=== PATIENT | female | born 1985 | race Caucasian/White ===

== ENCOUNTER 2025-01-05 16:50 | Inpatient (IN) | payer MEDICAID ==
[~2025-01-05] VITALS: Ht 160 cm; Wt 53.6 kg
[2025-01-05 17:40] VITALS: PULSE 94; RESP 16; O2SAT 100
[2025-01-05] MEDS: ROCURONIUM BROMIDE 10MG/ML VIAL 5ML IV ONE (17:50)
[2025-01-05] MEDS: PROPOFOL 10MG/ML 100ML 100 ML IV ONE (17:50)
[2025-01-05] MEDS: ETOMIDATE 2MG/ML 10ML VIAL IV ONE (17:50)
[2025-01-05] MEDS: NALOXONE HCL 0.4MG/ML 1ML VIAL ONE (17:51)
[2025-01-05 18:02] LABS: BASOPHILS % 0.4 % (0.0-2.0); EOSINOPHILS % 0.6 % (0.0-5.0); HEMATOCRIT. 40.3 % (36.0-48.0); HEMOGLOBIN. 13.1 g/dL (12.0-16.0); MEAN CORPUSCULAR HGB CONC 32.6 g/dL (31.0-37.0); MEAN CORPUSCULAR VOLUME 91.9 fL (81.0-99.0); MEAN PLATELET VOLUME 7.3 fl (7.4-10.4); MONOCYTES % 6.6 % (2.0-8.0); NEUTROPHILS % 56.4 % (40.0-76.0); PLATELET 321 x1000/uL (130-400); RED BLOOD CELL COUNT 4.38 mill/uL (4.2-5.4); RED CELL DISTRIBUTION WIDTH 13.4 % (11.6-14.6); WHITE BLOOD COUNT 6.6 x1000/uL (4.5-11.0)
[2025-01-05 18:10] LABS: CHLORIDE 105 mEq/L (98-107); SODIUM 139 mEq/L (136-145)
[2025-01-05 18:11] LABS: CARBON DIOXIDE 21 mEq/L (21-32)
[2025-01-05 18:12] LABS: CALCIUM 8.7 mg/dL (8.7-10.4)
[2025-01-05 18:16] LABS: CREATININE 0.6 mg/dL (0.6-1.0); GLUCOSE 96 mg/dL (70-105); HCG SCREEN NEGATIVE
[2025-01-05 18:17] LABS: UREA NITROGEN BLOOD 7 mg/dL (9-23)
[2025-01-05] MEDS: NALOXONE HCL 0.4MG/ML 1ML VIAL IV PRN (18:17)
[2025-01-05 18:18] LABS: ACETAMINOPHEN < 2 ug/mL (10-30)
[2025-01-05 18:30] LABS: BG CARBOXYHEMOGLOBIN 0.3 % (0.5-1.5); BG DEOXYHEMOGLOBIN 0.1 % (0.0-5.0); BG FRACTION INSPIRED OXYGEN 100; BG HCO3 ACT 18.6 mmol/L (21.0-28.0); BG METHEMOGLOBIN 0.1 % (0.5-1.5); BG OXYGEN SATURATION 99.9 % (94.0-98.0); BG OXYHEMOGLOBIN 99.5 % (94.0-98.0); BG PCO2 34.2 mmHg (32.0-45.0); BG PH 7.354 (7.350-7.450); BG PO2 403.1 mmHg (83.0-108.0); BG SAMPLE SITE LEFT RADIAL; BG TOTAL HEMOGLOBIN 13.3 g/dL (12.0-16.0); BG TOTAL RESPIRATORY RATE 19 b/min; BG VENT MODE VENT - AC
[2025-01-05 18:30] LABS: ETHANOL BLOOD 493 mg/dL (<10)
[2025-01-05] MEDS: MIDAZOLAM HCL 2 MG/2 ML VIAL IV ONE ×2 (18:47→20:09)
[2025-01-05] MEDS ORDERED: FENTANYL 2500MCG/250ML PMX 250 ML IV ONE (20:00)
[2025-01-05] MEDS ORDERED: MIDAZOLAM 100MG/100ML PMX 100 ML IV PRN (20:00)
[2025-01-05] MEDS: MIDAZOLAM 100MG/100ML PMX 100 ML IV PRN (20:50)
[2025-01-05] MEDS: FENTANYL 2500MCG/250ML PMX 250 ML IV NR (20:52)
[2025-01-05] MEDS ORDERED: DEXMEDETOMIDINE 400 MCG/100 ML 100 ML IV PRN (21:15)
[2025-01-05] MEDS: NOREPINEPHRINE 8MG/250ML PMX 250 ML IV PRN (21:32)
[2025-01-05 21:41] LABS: CLARITY URINE CLEAR (CLEAR); COLOR URINE YELLOW (YELLOW); GLUCOSE URINE NEGATIVE (NEGATIVE); KETONES URINE TRACE (NEGATIVE); LEUKOCYTE ESTERASE URINE NEGATIVE (NEGATIVE); NITRITE URINE NEGATIVE (NEGATIVE); OCCULT BLOOD URINE 2+ (NEGATIVE); PH URINE 5.5 (4.5-8.0); PROTEIN URINE NEGATIVE (NEGATIVE); SPECIFIC GRAVITY URINE 1.008 (1.005-1.030); UROBILINOGEN URINE 0.2 E.U./dL (0.2-1.0)
[2025-01-05 21:43] VITALS: PULSE 78; RESP 16; O2SAT 100
[2025-01-05] MEDS: DEXT 5%/LACTATED RINGERS 1,000 ML IV SCH (21:46)
[2025-01-05 21:55] LABS: *AMPHETAMINES SCREEN URINE NEGATIVE (NEGATIVE); *BARBITURATES SCREEN URINE NEGATIVE (NEGATIVE); *BENZODIAZEPINES SCREEN URINE PRESUMPTIVE POSITIVE (NEGATIVE); *COCAINE SCREEN URINE NEGATIVE (NEGATIVE); CANNABINOID URINE SCREEN NEGATIVE (NEGATIVE); ECSTASY MDMA SCREEN URINE NEGATIVE (NEGATIVE); METHADONE URINE SCREEN NEGATIVE (NEGATIVE); OPIATES URINE SCREEN NEGATIVE (NEGATIVE); PHENCYCLIDINE URINE SCREEN NEGATIVE (NEGATIVE)
[2025-01-05] MEDS ORDERED: FENTANYL CITRATE/PF 50MCG/ML 2ML VIAL IV PRN (22:00)
[2025-01-05] MEDS ORDERED: ONDANSETRON HCL 4MG/2ML INJ IV PRN (22:15)
[2025-01-05] MEDS ORDERED: HYDRALAZINE 20MG/ML VIAL IV PRN (22:15)
[2025-01-05] MEDS ORDERED: ACETAMINOPHEN 650MG/20.3ML UDC GT PRN (22:15)
[2025-01-05] MEDS ORDERED: DEXTROSE 50% WATER 50ML SYRINGE IV PRN (22:15)
[2025-01-05 22:30] VITALS: PULSE 57; RESP 16; O2SAT 100
[2025-01-05 22:33] LABS: BACTERIA URINE 1+; SQUAMOUS EPITHELIAL CELL URINE FEW /lpf (RARE/1+); WBC URINE 0-2 /hpf (0-2)
[2025-01-05 23:08] LABS: TRIGLYCERIDE 120 mg/dL (0-150)
[2025-01-05 23:09] LABS: CREATINE KINASE MB FRACTION < 0.5 ng/mL (0.5-3.6); LDL CHOLESTEROL 121 mg/dL (5-100)
[2025-01-05 23:10] LABS: CHOLESTEROL 191 mg/dL (<200); CREATINE KINASE 76 IU/L (34-145); HDL CHOLESTEROL 48 mg/dL (>65); LACTIC ACID 3.1 mmol/L (0.4-2.0); PHOSPHORUS 3.5 mg/dL (2.5-4.9)
[2025-01-05 23:11] LABS: TROPONIN I HIGH SENSITIVITY < 4 ng/L (3.0-34)
[2025-01-05 23:13] LABS: THYROID STIMULATING HORMONE 1.71 uIU/mL (0.55-4.78)
[2025-01-06] VITALS (74 sets, daily range): BP systolic 66–139; BP diastolic 39–82; PULSE 53–116; RESP 9–25; TEMP 36.6–37.5; O2SAT 95–100
[2025-01-06] MEDS ORDERED: LORAZEPAM 2MG/ML INJ IV PRN (01:15)
[2025-01-06] MEDS: THIAMINE HCL 100 MG, FOLIC ACID 1 MG, MVI, ADULT NO.1 10 ML in SODIUM CHLORIDE 0.9% 1,0... IV SCH (01:16)
[2025-01-06] MEDS: AZITHROMYCIN 500MG/250ML 250 ML IV SCH (01:30)
[2025-01-06] MEDS ORDERED: BLOOD SUGAR DIAGNOSTIC STRIP TEST SCH ×2 (02:00→09:00)
[2025-01-06] MEDS: BLOOD SUGAR DIAGNOSTIC STRIP TEST SCH ×2 (02:44)
[2025-01-06] MEDS: SODIUM CHLORIDE 10% FOR INH 15ML NEB INH NR (02:47)
[2025-01-06] MEDS: IPRATROPIUM/ALBUTEROL 0.5-3(2.5)MG/3ML NEB HHN PRN (02:48)
[2025-01-06 04:42] LABS: CHLORIDE 114 mEq/L (98-107); POTASSIUM 3.9 mEq/L (3.5-5.1); SODIUM 147 mEq/L (136-145)
[2025-01-06 04:43] LABS: CALCIUM 7.5 mg/dL (8.7-10.4); CARBON DIOXIDE 20 mEq/L (21-32)
[2025-01-06 04:47] LABS: BASOPHILS % 0.3 % (0.0-2.0); EOSINOPHILS % 0.7 % (0.0-5.0); HEMATOCRIT. 36.3 % (36.0-48.0); HEMOGLOBIN. 11.9 g/dL (12.0-16.0); LYMPHOCYTES % 27.8 % (20.0-50.0); MEAN CORPUSCULAR HEMOGLOBIN 29.5 pg (28.0-32.0); MEAN CORPUSCULAR HGB CONC 32.9 g/dL (31.0-37.0); MEAN CORPUSCULAR VOLUME 89.5 fL (81.0-99.0); MEAN PLATELET VOLUME 7.2 fl (7.4-10.4); MONOCYTES % 11.8 % (2.0-8.0); NEUTROPHILS % 59.4 % (40.0-76.0); PLATELET 374 x1000/uL (130-400); RED BLOOD CELL COUNT 4.05 mill/uL (4.2-5.4); RED CELL DISTRIBUTION WIDTH 13.5 % (11.6-14.6); WHITE BLOOD COUNT 13.6 x1000/uL (4.5-11.0)
[2025-01-06 04:48] LABS: CREATININE 0.6 mg/dL (0.6-1.0); GLUCOSE 179 mg/dL (70-105); UREA NITROGEN BLOOD 5 mg/dL (9-23)
[2025-01-06 04:50] LABS: ALANINE AMINOTRANSFERASE 17 IU/L (10-49); ALBUMIN 3.6 g/dL (3.2-4.8); ASPARTATE AMINOTRANSFERASE 20 IU/L (<34); BILIRUBIN TOTAL 0.2 mg/dL (0.1-1.0); PROTEIN TOTAL 6.4 g/dL (6.0-8.3)
[2025-01-06] MEDS: MIDAZOLAM HCL 2 MG/2 ML VIAL IV PRN (07:41)
[2025-01-06] MEDS ORDERED: FOLIC ACID 1MG TABLET PO SCH (09:00)
[2025-01-06] MEDS ORDERED: THIAMINE HCL 100MG TABLET PO SCH (09:00)
[2025-01-06] MEDS: PANTOPRAZOLE SODIUM 40 MG/VIAL IV SCH (09:25)
[2025-01-06] MEDS ORDERED: DEXT 5%/0.9% NACL 1,000 ML IV SCH (11:00)
[2025-01-06] MEDS: SODIUM CHLORIDE 0.45% 1,000 ML IV SCH (11:13)
[2025-01-06] MEDS: DEXMEDETOMIDINE 400 MCG/100 ML 100 ML IV PRN (15:28)
[2025-01-06 18:34] LABS: BG BASE EXCESS -1.6 mmol/L (-2.0-3.0); BG CARBOXYHEMOGLOBIN 0.1 % (0.5-1.5); BG DEOXYHEMOGLOBIN 0.8 % (0.0-5.0); BG FRACTION INSPIRED OXYGEN 30; BG HCO3 ACT 21.7 mmol/L (21.0-28.0); BG METHEMOGLOBIN 0.3 % (0.5-1.5); BG OXYGEN SATURATION 99.2 % (94.0-98.0); BG OXYHEMOGLOBIN 98.8 % (94.0-98.0); BG PCO2 31.9 mmHg (32.0-45.0); BG PO2 151.3 mmHg (83.0-108.0); BG SAMPLE SITE RIGHT BRACHIAL; BG TOTAL HEMOGLOBIN 11.6 g/dL (12.0-16.0); BG TOTAL RESPIRATORY RATE 14 b/min; BG VENT MODE VENT - CPAP
[2025-01-06] MEDS ORDERED: LEVETIRACETAM 1,000MG in NACL 100ML PREMIX IV SCH (21:00)
[2025-01-06] MEDS: LEVETIRACETAM 1000MG PREMIX 100 ML IV SCH (21:15)
[2025-01-07] VITALS (79 sets, daily range): BP systolic 93–136; BP diastolic 57–92; PULSE 60–118; RESP 11–33; TEMP 36.7–37.7; O2SAT 96–100
[2025-01-07 05:45] LABS: BASOPHILS % 0.4 % (0.0-2.0); EOSINOPHILS % 1.5 % (0.0-5.0); HEMATOCRIT. 31.5 % (36.0-48.0); HEMOGLOBIN. 10.7 g/dL (12.0-16.0); MEAN CORPUSCULAR HEMOGLOBIN 31.1 pg (28.0-32.0); MEAN CORPUSCULAR VOLUME 91.5 fL (81.0-99.0); MEAN PLATELET VOLUME 7.5 fl (7.4-10.4); MONOCYTES % 10.7 % (2.0-8.0); NEUTROPHILS % 67.4 % (40.0-76.0); PLATELET 224 x1000/uL (130-400); RED BLOOD CELL COUNT 3.44 mill/uL (4.2-5.4); RED CELL DISTRIBUTION WIDTH 13.3 % (11.6-14.6); WHITE BLOOD COUNT 10.9 x1000/uL (4.5-11.0)
[2025-01-07 06:06] LABS: CHLORIDE 105 mEq/L (98-107); POTASSIUM 3.7 mEq/L (3.5-5.1); SODIUM 141 mEq/L (136-145)
[2025-01-07 06:09] LABS: CARBON DIOXIDE 27 mEq/L (21-32)
[2025-01-07 06:14] LABS: CREATININE 0.5 mg/dL (0.6-1.0); GLUCOSE 90 mg/dL (70-105)
[2025-01-07 06:16] LABS: ALANINE AMINOTRANSFERASE 15 IU/L (10-49); ALBUMIN 3.3 g/dL (3.2-4.8); ASPARTATE AMINOTRANSFERASE 16 IU/L (<34)
[2025-01-07 06:17] LABS: BILIRUBIN TOTAL 0.7 mg/dL (0.1-1.0); PHOSPHORUS 2.5 mg/dL (2.5-4.9); PROTEIN TOTAL 5.9 g/dL (6.0-8.3)
[2025-01-07 06:43] LABS: UREA NITROGEN BLOOD < 5 mg/dL (9-23)
[2025-01-07] MEDS: MAGNESIUM 4 G PREMIX 100 ML IV NR (09:12)
[2025-01-07] MEDS: FAMOTIDINE 20MG TABLET PO SCH (21:02)
[2025-01-08] VITALS (36 sets, daily range): BP systolic 97–137; BP diastolic 54–86; PULSE 53–93; RESP 10–16; TEMP 36.7–37.1; O2SAT 95–100
[2025-01-08 05:29] LABS: HEMATOCRIT 29.8 % (36.0-48.0); HEMOGLOBIN 10.4 g/dL (12.0-16.0); MEAN CORPUSCULAR HEMOGLOBIN 31.4 pg (28.0-32.0); MEAN CORPUSCULAR HGB CONC 34.9 g/dL (31.0-37.0); MEAN CORPUSCULAR VOLUME 90.1 fL (81.0-99.0); PLATELET 211 x1000/uL (130-400); RED BLOOD CELL COUNT 3.31 mill/uL (4.2-5.4); WHITE BLOOD COUNT 6.4 x1000/uL (4.5-11.0)
[2025-01-08 05:35] LABS: CHLORIDE 111 mEq/L (98-107); POTASSIUM 3.6 mEq/L (3.5-5.1); SODIUM 144 mEq/L (136-145)
[2025-01-08 05:36] LABS: CALCIUM 7.6 mg/dL (8.7-10.4); CARBON DIOXIDE 28 mEq/L (21-32)
[2025-01-08 05:41] LABS: CREATININE 0.5 mg/dL (0.6-1.0); GLUCOSE 89 mg/dL (70-105); UREA NITROGEN BLOOD 6 mg/dL (9-23)
[2025-01-08] MEDS: LEVETIRACETAM 500MG TABLET PO SCH (08:21)
[2025-01-08] MEDS ORDERED: THIA100T72 PO (10:31)
[2025-01-08] MEDS ORDERED: ACET650S25 PO (10:31)
[2025-01-08] MEDS ORDERED: PANT40TA51 PO (10:31)
[2025-01-08] MEDS ORDERED: KEPP500 PO (10:31)
[2025-01-08] MEDS ORDERED: INFLUENZA VACCINE 05/PF 0.5 ML SYRINGE IM ONE (18:00)
[2025-01-08] MEDS ORDERED: PNEUMOCOCCAL 20-VAL CONJ-DIP CRM 0.5ML IM ONE (18:00)
[2025-01-08] MEDS ORDERED: AZITHROMYCIN 500 MG TABLET PO SCH (21:00)
== END 2025-01-08 18:05 | disposition home or self-care (01) | DRG 52 ==
LOC: EDSEX 16:50 → ER 16:50 → EDBEDREQ 21:08 → EDBEDREQTM 21:08 → EDBD 01-06 08:07 → MICUSO 01-06 08:07 → 3WST 01-08 09:16
PROVIDERS: ADMIT Internal Medicine; ATTEND Internal Medicine
PROC: 5A1945Z Respiratory Ventilation, 24-96 Consecutive Hours (ICD-10-PCS; principal; 2025-01-05)
PROC: 0BH17EZ Insertion of Endotracheal Airway into Trachea, Via Natural or Artificial Opening (ICD-10-PCS; 2025-01-05)
DX: G92.8 Other toxic encephalopathy (principal); J96.00 Acute respiratory failure, unspecified whether with hypoxia or hypercapnia; J69.0 Pneumonitis due to inhalation of food and vomit; I95.9 Hypotension, unspecified; E87.20 Acidosis, unspecified; E87.0 Hyperosmolality and hypernatremia; I50.30 Unspecified diastolic (congestive) heart failure; F10.129 Alcohol abuse with intoxication, unspecified; I51.7 Cardiomegaly; G40.909 Epilepsy, unspecified, not intractable, without status epilepticus; D64.9 Anemia, unspecified; R00.1 Bradycardia, unspecified; E83.42 Hypomagnesemia; Z79.899 Other long term (current) drug therapy
CPT/HCPCS: 31500; 36415; 36600; 71045; 80048; 80053; 80061; 80305; 80307; 80320; 80329; 81003; 82375; 82542; 82550; 82553; 82805; 82962; 83036; 83605; 83735; 83880; 84100; 84145; 84439; 84443; 84484; 84703; 85025; 85027; 87070; 93005; 93306; 93970; 94002; 94003; 94070; 94640; 94664; 98960; 99291; A4606; J0456; J1953; J2250; J2310; J2470; J2704; J3010; J3411; J3475; J3490; J7030; J7131; Q9957; G0480